=== PATIENT | male | born 1975 | race Hispanic/Latino ===

== ENCOUNTER 2020-05-21 06:49 | Emergency (ER) | payer SELFPAY ==
[2020-05-21] MEDS ORDERED: Lorazepam 1 MG TAB ONE (07:58)
[2020-05-21 08:41] LABS: #Basophils 0.1 thou/uL (0.0-0.2); #Eosinphils 0.5 thou/uL (0.0-0.7); #Lymphocytes 1.4 thou/uL (1.20-3.40); #Monocytes 0.5 thou/uL (0.11-0.59); #Neutrophils 6.8 thou/uL (1.40-6.50); %Basophils 0.8 % (0.0-1.0); %Eosinophils 5.4 % (0.0-10.0); %Lymphocytes 15.4 % (21.0-51.0); %Monocytes 5.8 % (0.0-10.0); %Neutrophils 72.5 % (42.0-75.0); Hemoglobin 14.5 g/dL (14.0-18.0); Mean Corpuscular HGB CONC 34.3 g/dL (32.0-36.0); Mean Corpuscular Hemoglobin 31.3 pg (27.0-31.0); Mean Corpuscular Volume 91.3 fL (78.0-98.0); Mean Platelet Volume 9.2 fL (7.4-10.4); Platelet Count 188 thou/uL (130-400); RBC Distribution Width 11.7 % (11.5-14.5); Red Blood Cell (RBC) Count 4.65 mill/uL (4.70-6.10); White Blood Cell (WBC) Count 9.3 thou/uL (4.8-10.8)
[2020-05-21 09:05] LABS: ALT (SGPT) 36 U/L (8-55); AST (SGOT) 40 U/L (5-34); Albumin 4.3 g/dL (3.5-5.0); Alkaline Phosphatase 81 U/L (40-110); Anion Gap 15 mmol/L (10-20); BUN (Urea Nitrogen) 15 mg/dL (8.9-20.6); Bilirubin, Total 0.5 mg/dL (0.2-1.2); CK (CPK) 263 U/L (30-200); Calc. Creatinine Clearance 0 mL/min (70-130); Calcium 9.3 mg/dL (7.8-10.44); Carbon Dioxide 27 mmol/L (22-29); Chloride 99 mmol/L (98-107); Estimated GFR-MDRD 83; Globulin 3.1 g/dL (2.4-3.5); Glucose 136 mg/dL (70-105); Magnesium 1.8 mg/dL (1.6-2.6); Potassium 3.7 mmol/L (3.5-5.1); Protein, Total 7.4 g/dL (6.0-8.3); Sodium 137 mmol/L (136-145)
--- NOTE | 2020-05-21 09:58 | RAD ---
PORTABLE CHEST 1 VIEW: Date: 05/21/2020 Time: 0753 hours HISTORY: Weakness and fatigue. FINDINGS: There are no previous exams for comparison. The heart size is normal. The lungs are expanded without lobar consolidation, pneumothoraces, or pleu ral effusions. A small calcified granuloma is seen in the right upper lobe. IMPRESSION: No radiographic evidence of acute cardiopulmonary process. POS: [facility]
== END 2020-05-21 10:30 | disposition home or self-care (01) ==
LOC: ERS 06:49
DX: R25.1 Tremor, unspecified (principal)
CPT/HCPCS: 36415; 71045; 80053; 82550; 83735; 84443; 84484; 85025; 93005